=== PATIENT | female | born 1980 | race African-American/Black ===

== ENCOUNTER 2018-10-13 15:57 | Emergency (ER) | payer SELFPAY ==
[~2018-10-13] VITALS: Ht 162.6 cm; Wt 147.9 kg
[2018-10-13 16:23] VITALS: BP 127/84
== END 2018-10-13 21:49 | disposition left against medical advice (07) ==
LOC: ER 15:57
DX: R50.9 Fever, unspecified (principal); R05 Cough; M79.10 Myalgia, unspecified site; Z53.21 Procedure and treatment not carried out due to patient leaving prior to being seen by health care provider